=== PATIENT | male | born 1995 | race African-American/Black ===

== ENCOUNTER 2023-04-22 11:02 | Emergency (ER) | payer BC ==
[~2023-04-22] VITALS: Ht 175.3 cm; Wt 93.4 kg
[2023-04-22 13:49] VITALS: BP 105/47; TEMP 98.7; O2SAT 97
== END 2023-04-22 13:50 | disposition home or self-care (01) ==
LOC: ER 11:04
DX: R56.9 Unspecified convulsions (principal)
CPT/HCPCS: 82962-TC